=== PATIENT | female | born 1980 | race African-American/Black ===

== ENCOUNTER 2024-06-06 14:35 | Emergency (ER) | payer SELFPAY ==
[~2024-06-06] VITALS: Ht 165.1 cm; Wt 55.9 kg
[2024-06-06 14:42] VITALS: PULSE 79; RESP 16; TEMP 98; O2SAT 100
== END 2024-06-06 17:05 | disposition home or self-care (01) ==
LOC: ER 16:35
DX: M25.532 Pain in left wrist (principal); W22.09XA Striking against other stationary object, initial encounter; Y92.89 Other specified places as the place of occurrence of the external cause
CPT/HCPCS: 99283